=== PATIENT | female | born 1935 | race Caucasian/White ===

== ENCOUNTER → 2020-05-19 | Outpatient (CLI) | payer MEDICARE, OTHER ==
[~2020-05-19] MED LIST: ALDACTONE 25MG25 MG PO; ASPIRIN81 MG PO; CLARITIN10 M2 PO; ELIQUIS2.5 MG PO; K-TAB ER20 MEQ PO; LASIX 40 MG TAB40 MG PO; LEVOTHYROXINE137 MC1 PO; LOPRESSOR 50 MG50 MG PO; NASONEX17 GM; NORVASC5 MG PO; SIMVASTATIN20 MG PO; VITAMIN D325 MC6 PO; ZYLOPRIM 100 M100 MG PO
== END ==
LOC: HEART 5 09:03
DX: I48.19 Other persistent atrial fibrillation (principal); I25.10 Atherosclerotic heart disease of native coronary artery without angina pectoris; R06.02 Shortness of breath; I11.9 Hypertensive heart disease without heart failure; J98.4 Other disorders of lung; I08.1 Rheumatic disorders of both mitral and tricuspid valves; I70.0 Atherosclerosis of aorta; I08.8 Other rheumatic multiple valve diseases; Z00.00 Encounter for general adult medical examination without abnormal findings
CPT/HCPCS: 93306

== ENCOUNTER 2020-05-24 16:15 | Inpatient (IN) | payer MEDICARE, OTHER ==
[~2020-05-24] VITALS: Ht 160 cm; Wt 82.2 kg
[2020-05-24 17:56] LABS: HEMOGLOBIN 11.7 gm/dl (12.3-15.3); RED BLOOD COUNT 3.94 M/UL (4.00-5.10); WHITE BLOOD COUNT 6.3 K/UL (4.5-11.0)
[2020-05-24] MEDS ORDERED: LOPRESSOR 50 MG50 MG PO (23:05)
[2020-05-24] MEDS ORDERED: SIMVASTATIN20 MG PO (23:06)
[2020-05-24] MEDS ORDERED: NORVASC5 MG PO (23:06)
[2020-05-24] MEDS ORDERED: LEVOTHYROXINE137 MC1 PO (23:06)
[2020-05-24] MEDS ORDERED: ZYLOPRIM 100 M100 MG PO (23:07)
[2020-05-24] MEDS ORDERED: LASIX 40 MG TAB40 MG PO (23:07)
[2020-05-24] MEDS ORDERED: ELIQUIS2.5 MG PO (23:07)
[2020-05-24] MEDS ORDERED: ASPIRIN81 MG PO (23:08)
[2020-05-24] MEDS ORDERED: VITAMIN D325 MC6 PO (23:08)
[2020-05-24] MEDS ORDERED: CLARITIN10 M2 PO (23:09)
[2020-05-24] MEDS ORDERED: NASONEX17 GM (23:10)
[2020-05-25 06:40] LABS: HEMOGLOBIN 11.9 gm/dl (12.3-15.3)
[2020-05-25 06:52] LABS: WHITE BLOOD COUNT 3.9 K/UL (4.5-11.0)
[2020-05-26 06:35] LABS: HEMOGLOBIN 11.2 gm/dl (12.3-15.3); RED BLOOD COUNT 3.79 M/UL (4.00-5.10); WHITE BLOOD COUNT 5.8 K/UL (4.5-11.0)
[2020-05-27 05:06] LABS: HEMOGLOBIN 10.8 gm/dl (12.3-15.3); RED BLOOD COUNT 3.66 M/UL (4.00-5.10); WHITE BLOOD COUNT 5.1 K/UL (4.5-11.0)
[2020-05-28 05:23] LABS: HEMOGLOBIN 11.4 gm/dl (12.3-15.3); RED BLOOD COUNT 3.86 M/UL (4.00-5.10)
[2020-05-28 05:29] LABS: WHITE BLOOD COUNT 6.6 K/UL (4.5-11.0)
[2020-05-29 04:42] LABS: HEMOGLOBIN 11.1 gm/dl (12.3-15.3); RED BLOOD COUNT 3.8 M/UL (4.00-5.10); WHITE BLOOD COUNT 6.5 K/UL (4.5-11.0)
[2020-05-30 06:58] LABS: HEMOGLOBIN 11.5 gm/dl (12.3-15.3); RED BLOOD COUNT 3.9 M/UL (4.00-5.10); WHITE BLOOD COUNT 6.6 K/UL (4.5-11.0)
[2020-05-31 08:36] LABS: RED BLOOD COUNT 3.75 M/UL (4.00-5.10); WHITE BLOOD COUNT 6.1 K/UL (4.5-11.0)
[2020-06-01 06:33] LABS: HEMOGLOBIN 10.9 gm/dl (12.3-15.3); RED BLOOD COUNT 3.7 M/UL (4.00-5.10); WHITE BLOOD COUNT 5.7 K/UL (4.5-11.0)
[2020-06-01] MEDS ORDERED: ALDACTONE 25MG25 MG PO (13:57)
[2020-06-01] MEDS ORDERED: LASIX 40 MG TAB40 MG PO (13:57)
[2020-06-01] MEDS ORDERED: K-TAB ER20 MEQ PO (13:57)
== END 2020-06-01 15:59 | disposition home health service (06) | DRG 291 ==
LOC: ER1 16:15 → MED SURG 4 21:40 → CDU 21:40 → MED SURG 4 05-25 01:08
PROVIDERS: Family Medicine; Physician Assistant; Physician Assistant Medical; ADMIT Internal Medicine
DX: I13.0 Hypertensive heart and chronic kidney disease with heart failure and stage 1 through stage 4 chronic kidney disease, or unspecified chronic kidney disease (principal); I50.23 Acute on chronic systolic (congestive) heart failure; N17.9 Acute kidney failure, unspecified; I48.20 Chronic atrial fibrillation, unspecified; N18.30 Chronic kidney disease, stage 3 unspecified; I25.5 Ischemic cardiomyopathy; Z20.822 Contact with and (suspected) exposure to COVID-19; E87.6 Hypokalemia; E78.5 Hyperlipidemia, unspecified; D53.9 Nutritional anemia, unspecified; E03.9 Hypothyroidism, unspecified; I07.1 Rheumatic tricuspid insufficiency; Z79.899 Other long term (current) drug therapy; Z79.01 Long term (current) use of anticoagulants; Z79.82 Long term (current) use of aspirin; I25.10 Atherosclerotic heart disease of native coronary artery without angina pectoris; Z95.1 Presence of aortocoronary bypass graft; M10.9 Gout, unspecified; E55.9 Vitamin D deficiency, unspecified; E66.9 Obesity, unspecified; Z90.710 Acquired absence of both cervix and uterus; G47.33 Obstructive sleep apnea (adult) (pediatric); Z68.35 Body mass index [BMI] 35.0-35.9, adult
CPT/HCPCS: 36415; 71045; 71046; 80048; 80053; 81001; 82550; 82553; 83735; 83874; 83880; 84100; 84439; 84443; 84484; 85025; 85027; 85610; 90471; 93005; 97110-GP-CQ; 97116-GP-CQ; 97162; 99285; J1940; U0002

== ENCOUNTER 2021-05-19 18:44 | Emergency (ER) | payer MEDICARE, OTHER ==
[2021-05-19 20:48] LABS: HEMOGLOBIN 10.8 gm/dl (12.3-15.3); RED BLOOD COUNT 3.82 M/UL (4.00-5.10); WHITE BLOOD COUNT 13.1 K/UL (4.5-11.0)
[2021-05-19 21:30] LABS: BORDETELLA PARAPERTUSSIS Not Detected (Not Detectd); BORDETELLA PERTUSSIS Not Detected (Not Detectd); CHLAMYDIA PNEUMONIAE Not Detected (Not Detectd); CORONAVIRUS HKU1 Not Detected (Not Detectd); CORONAVIRUS NL63 Not Detected (Not Detectd); CORONAVIRUS OC43 Not Detected (Not Detectd); CORONOAVIRUS 229E Not Detected (Not Detectd); HUMAN METAPNEUMOVIRUS Not Detected (Not Detectd); HUMAN RHINOVIRUS/ENTEROVIRUS Not Detected (Not Detectd); INFLUENZA A Not Detected (Not Detectd); INFLUENZA B Not Detected (Not Detectd); MYCOPLASMA PNEUMONIAE Not Detected (Not Detectd); PARAINFLUENZA VIRUS 1 Not Detected (Not Detectd); PARAINFLUENZA VIRUS 2 Not Detected (Not Detectd); PARAINFLUENZA VIRUS 3 Not Detected (Not Detectd); PARAINFLUENZA VIRUS 4 Not Detected (Not Detectd); RESPIRATORY SYNCYTIAL VIRUS Not Detected (Not Detectd)
[2021-05-19 22:32] LABS: SARS-CoV-2 NOT DETECTED (Not Detectd)
== END 2021-05-20 00:19 | disposition short-term general hospital (02) ==
LOC: ER1 18:44
PROVIDERS: Preventive Medicine Occupational Medicine
DX: K44.0 Diaphragmatic hernia with obstruction, without gangrene (principal); I25.10 Atherosclerotic heart disease of native coronary artery without angina pectoris; I50.9 Heart failure, unspecified; Z95.1 Presence of aortocoronary bypass graft; Z20.822 Contact with and (suspected) exposure to COVID-19
CPT/HCPCS: 71045; 80053; 82550; 82553; 83690; 83874; 83880; 84484; 85025; 85652; 86140; 87633; 93005; 96374; 96375; 99285; C9113; J2405